=== PATIENT | male | born 1975 | race Caucasian/White ===

== ENCOUNTER 2024-09-01 20:35 | Emergency (ER) | payer OTHER ==
[2024-09-01 20:57] VITALS: BP 120/83; PULSE 90; RESP 18; TEMP 98.1; BMI 22.8
[2024-09-01] MEDS ORDERED: KETOROLAC TROMETHAMINE 60 MG/2 ML VIAL ONE (21:10)
[2024-09-01] MEDS: KETOROLAC TROMETHAMINE 60 MG/2 ML VIAL IM ONE (21:13)
== END 2024-09-02 00:08 | disposition home or self-care (01) ==
LOC: FER 20:35
PROC: 3E0233Z Introduction of Anti-inflammatory into Muscle, Percutaneous Approach (ICD-10-PCS; principal; 2024-09-01)
DX: M25.552 Pain in left hip (principal); W10.9XXA Fall (on) (from) unspecified stairs and steps, initial encounter
CPT/HCPCS: 72170-TC-FY; 73502-TC-LT-FY; 73700-TC-RT; 99284-25

== ENCOUNTER 2024-09-21 09:56 | Day surgery (SDC) | payer OTHER ==
[2024-09-19 11:40] VITALS: BMI 23.6
[2024-09-21 10:26] VITALS: RESP 18
[2024-09-21 11:31] VITALS: TEMP 97
[2024-09-21 11:46] VITALS: BP 135/85; PULSE 75
== END 2024-09-21 12:14 | disposition home or self-care (01) ==
LOC: FASU-ENDO 09:56
PROVIDERS: ATTEND Internal Medicine Gastroenterology
PROC: 0DJD8ZZ Inspection of Lower Intestinal Tract, Via Natural or Artificial Opening Endoscopic (ICD-10-PCS; principal; 2024-09-21 11:03)
DX: Z12.11 Encounter for screening for malignant neoplasm of colon (principal)